=== PATIENT | female | born 1985 | race Caucasian/White ===

== ENCOUNTER 2017-10-28 00:58 | Emergency (ER) | payer OTHER, MEDICAID ==
[2017-10-28] MEDS: LIDOCAINE/MYLANTA 40 ML BTL PO (02:51)
[2017-10-28] MEDS: LORAZEPAM 1 MG TAB PO (02:51)
[2017-10-28] MEDS: ACETAMINOPHEN 325 MG TAB PO (02:51)
== END 2017-10-28 05:07 | disposition home or self-care (01) ==
LOC: FTE 00:58
DX: R07.2 Precordial pain (principal)
CPT/HCPCS: 71045; 93005; 99284-25

== ENCOUNTER 2017-10-28 07:53 | Emergency (ER) | payer MEDICAID ==
[2017-10-28] MEDS: ACETAMINOPHEN 325 MG TAB PO (09:57)
[2017-10-28 10:59] LABS: ADD MAN DIFF? NO
[2017-10-28 11:04] LABS: BASOPHILS % 0.4 % (0.0-2.0); EOSINOPHILS # 0.1 10^3/ul (0.0-0.5); HEMATOCRIT 38.4 % (37.0-47.0); HEMOGLOBIN 12.2 g/dl (12.0-16.0); LYMPHOCYTES # 2.4 10^3/ul (0.8-2.9); MEAN CORPUSCULAR HEMOGLOBIN 27.8 pg (29.0-33.0); MEAN CORPUSCULAR HGB CONC 31.8 g/dl (32.0-37.0); MEAN CORPUSCULAR VOLUME 87.5 fl (82.0-101.0); MEAN PLATELET VOLUME 9.9 fl (7.4-10.4); MONOCYTE # 0.7 10^3/ul (0.3-0.9); MONOCYTES % 7.8 % (0.0-11.0); NEUTROPHIL # 5.7 10^3/ul (1.6-7.5); NEUTROPHILS % 63.5 % (39.0-77.0); PLATELET COUNT 260 10^3/UL (140-415); RED BLOOD COUNT 4.39 10^6/ul (4.20-5.40); RED CELL DISTRIBUTION WIDTH 13.6 % (11.5-14.5)
[2017-10-28 11:19] LABS: ALANINE AMINOTRANSFERASE 25 IU/L (13-69); ALBUMIN 4.5 g/dl (3.3-4.9); ALKALINE PHOSPHATASE 60 IU/L (42-121); ANION GAP 19 (8-16); ASPARTATE AMINO TRANSFERASE 13 IU/L (15-46); BILIRUBIN,INDIRECT 0.1 mg/dl (0-1.1); BILIRUBIN,TOTAL 0.1 mg/dl (0.2-1.3); BLOOD UREA NITROGEN 8 mg/dl (7-20); CALCIUM 8.9 mg/dl (8.4-10.2); CARBON DIOXIDE 24 mmol/L (21-31); CHLORIDE 107 mmol/L (97-110); CREATININE 0.53 mg/dl (0.44-1.00); GLUCOSE 80 mg/dl (70-220); LIPASE 141 U/L (23-300); POTASSIUM 4.2 mmol/L (3.5-5.1); SODIUM 146 mmol/L (135-144); TOTAL PROTEIN 7.3 g/dl (6.1-8.1)
[2017-10-28 11:32] LABS: TROPONIN-I < 0.012 ng/ml (0.00-0.12)
[2017-10-28 11:48] LABS: URINE BLOOD (Dip) POC Negative (NEGATIVE); URINE GLUCOSE (Dip) POC Negative (NEGATIVE); URINE KETONES (Dip) POC Negative (NEGATIVE); URINE LEUKOCYTE EST (Dip) POC Negative (NEGATIVE); URINE NITRITE (Dip) POC Negative (NEGATIVE); URINE TOTAL PROTEIN POC Negative (NEGATIVE)
[2017-10-28 11:48] LABS: URINE PH (Dip) POC 6.5 (5.0-8.5)
== END 2017-10-28 12:31 | disposition home or self-care (01) ==
LOC: FTE 07:53
DX: R07.9 Chest pain, unspecified (principal); F15.90 Other stimulant use, unspecified, uncomplicated; F17.210 Nicotine dependence, cigarettes, uncomplicated
CPT/HCPCS: 71045; 80053; 81003; 83690; 84484; 84703; 85025; 93005; 99285-25

== ENCOUNTER 2017-12-05 14:32 | Emergency (ER) | payer MEDICAID ==
[2017-12-05] MEDS: ONDANSETRON (ODT) 4 MG TAB ODT (17:48)
[2017-12-05] MEDS: HYDROCODONE/APAP (10/325) TAB PO (17:49)
== END 2017-12-05 19:09 | disposition home or self-care (01) ==
LOC: FTE 14:32
DX: R51 Headache (principal); F17.210 Nicotine dependence, cigarettes, uncomplicated
CPT/HCPCS: 70450; 99284-25

== ENCOUNTER 2018-08-14 17:32 | Emergency (ER) | payer OTHER ==
[2018-08-14] MEDS: LORAZEPAM 2 MG INJ IM (18:11)
== END 2018-08-14 20:12 | disposition home or self-care (01) ==
LOC: E/R 17:32
DX: F41.9 Anxiety disorder, unspecified (principal)
CPT/HCPCS: 96372; 99284-25

== ENCOUNTER 2019-01-15 14:38 | Emergency (ER) | payer OTHER ==
[2019-01-15 15:10] LABS: ADD MAN DIFF? NO
[2019-01-15 15:19] LABS: BASOPHIL # 0.1 10^3/ul (0.0-0.1); BASOPHILS % 0.6 % (0.0-2.0); EOSINOPHILS # 0.1 10^3/ul (0.0-0.5); EOSINOPHILS % 0.8 % (0.0-7.0); HEMATOCRIT 41.1 % (37.0-47.0); HEMOGLOBIN 13.2 g/dl (12.0-16.0); LYMPHOCYTES # 2.8 10^3/ul (0.8-2.9); LYMPHOCYTES % 26.5 % (15.0-51.0); MEAN CORPUSCULAR HEMOGLOBIN 26.1 pg (29.0-33.0); MEAN CORPUSCULAR HGB CONC 32.1 g/dl (32.0-37.0); MEAN CORPUSCULAR VOLUME 81.4 fl (82.0-101.0); MEAN PLATELET VOLUME 10.2 fl (7.4-10.4); MONOCYTES % 9.8 % (0.0-11.0); NEUTROPHIL # 6.5 10^3/ul (1.6-7.5); NEUTROPHILS % 61.8 % (39.0-77.0); PLATELET COUNT 306 10^3/UL (140-415); RED BLOOD COUNT 5.05 10^6/ul (4.20-5.40); RED CELL DISTRIBUTION WIDTH 13.7 % (11.5-14.5)
[2019-01-15 15:19] LABS: WHITE BLOOD COUNT 10.5 10^3/ul (4.8-10.8)
[2019-01-15 15:22] LABS: POSITIVE DIFF @See below
[2019-01-15 15:39] LABS: ALANINE AMINOTRANSFERASE 24 IU/L (13-69); ALBUMIN 4.6 g/dl (3.3-4.9); ALBUMIN/GLOBULIN RATIO 1.64; ALKALINE PHOSPHATASE 58 IU/L (42-121); ANION GAP 14 (5-13); ASPARTATE AMINO TRANSFERASE 22 IU/L (15-46); BILIRUBIN,INDIRECT 0.5 mg/dl (0-1.1); BILIRUBIN,TOTAL 0.5 mg/dl (0.2-1.3); BLOOD UREA NITROGEN 15 mg/dl (7-20); CALCIUM 10.2 mg/dl (8.4-10.2); CARBON DIOXIDE 21 mmol/L (21-31); CHLORIDE 106 mmol/L (97-110); CREATININE 0.95 mg/dl (0.44-1.00); Estimated GFR > 60 mL/min (>60); GLUCOSE 125 mg/dl (70-220); LIPASE 72 U/L (23-300); POTASSIUM 3.9 mmol/L (3.5-5.1); SODIUM 141 mmol/L (135-144); TOTAL PROTEIN 7.4 g/dl (6.1-8.1)
[2019-01-15] MEDS: ONDANSETRON 4 MG INJ IV (15:40)
[2019-01-15] MEDS: SOD CHLORIDE 0.9% 1,000 ML IV (15:40)
[2019-01-15] MEDS: morphine 4 MG/ML VIAL IV (15:40)
[2019-01-15 15:49] LABS: TROPONIN-I < 0.012 ng/ml (0.000-0.120)
[2019-01-15] MEDS: ACETAMINOPHEN 325 MG TAB PO (17:52)
== END 2019-01-15 17:53 | disposition home or self-care (01) ==
LOC: E/R 14:38
DX: R10.84 Generalized abdominal pain (principal); R11.2 Nausea with vomiting, unspecified; R40.2142 Coma scale, eyes open, spontaneous, at arrival to emergency department; R40.2252 Coma scale, best verbal response, oriented, at arrival to emergency department; R40.2362 Coma scale, best motor response, obeys commands, at arrival to emergency department
CPT/HCPCS: 36415; 71045; 74176; 80053; 83690; 84484; 84703; 85025; 93005; 96374; 96375; 99285-25